=== PATIENT | female | born 1960 | race Caucasian/White ===

== ENCOUNTER 2021-01-22 23:08 | Emergency (ER) | payer OTHER ==
[~2021-01-22 23:08] MED LIST: CITRATE OF MAG296 ML PO; FLAGYL500 MG PO; LEVAQUIN750 MG PO; ZOFRAN4 MG PO
[2021-01-23 01:40] LABS: HEMOGLOBIN 18.9 gm/dl (12.3-15.3); RED BLOOD COUNT 5.08 M/UL (4.00-5.10)
[2021-01-23 02:02] LABS: BUN/CREATININE RATIO 16 (0-10)
== END 2021-01-23 04:04 | disposition home or self-care (01) ==
LOC: ER1 23:08
PROVIDERS: Physician Assistant
DX: K94.09 Other complications of colostomy (principal); K43.5 Parastomal hernia without obstruction or gangrene; Z90.49 Acquired absence of other specified parts of digestive tract; F17.210 Nicotine dependence, cigarettes, uncomplicated
CPT/HCPCS: 80053; 81001; 83605; 83690; 85025; 87086; 99284; Q9967